=== PATIENT | female | born 1940 | race Caucasian/White ===

== ENCOUNTER 2019-05-24 15:26 | Emergency (ER) | payer OTHER ==
[2019-05-24] MEDS ORDERED: ENOXAPARIN 80 MG/0.8 ML SQ ONE (16:06)
[2019-05-24 16:33] LABS: Protime INR 1.09
[2019-05-24 16:41] LABS: Albumin 3.1 g/dL (3.4-5.0); Bilirubin Direct 0.2 mg/dL (0-0.2); Bilirubin Total 0.7 mg/dL (0.2-1.0); Protein, Total 6.8 g/dL (6.4-8.2); Troponin (Emerg Dept Use Only) 0.04 ng/mL (0.0-0.045)
[2019-05-24 16:53] LABS: Absolute Lymphocytes (CBC) 1.2 K/uL (0.7-4.9); Basophils % 0.7 % (0-1.3); Hematocrit 35.6 % (36.0-45.0); Lymphocytes % 13.7 % (15.3-44.8); MPV 9.6 fL (7.6-11.3)
--- NOTE | 2019-05-24 17:28 | RAD REPORT ---
EXAM DESCRIPTION: [place] Single View05/24/2019 4:16 pm CLINICAL HISTORY: sob COMPARISON: none FINDINGS: The lungs appear clear of acute infiltrate. The heart is normal size
--- NOTE | 2019-05-24 17:28 | RAD REPORT ---
EXAM DESCRIPTION: CT - Chest For Pe Angio - 05/24/2019 5:08 pm CLINICAL HISTORY: Shortness breath/syncope COMPARISON: None. TECHNIQUE: Dynamically enhanced axial 3 mm thick images of the chest were obtained during administra tion of <100> mL Isovue 370 IV contrast. Coronal and oblique reconstruction images were generated and reviewed. Exam utilizes a protocol for optimal evaluation of pulmonary arterial tree. Maximum intensity projections 3D imaging was utilized All CT scans are performed using dose optimization technique as appropriate and may include automated exposure control or mA/KV adjustment according to patient size. FINDINGS: Large amount of thrombus is present within the main, left main, distal right main, right u pper, right middle, right lower, left upper and left lower lobe pulmonary arteries. Azygous and debra azygous veins are enlarged A thoracic aortic aneurysm is not noted. Small bilateral pleural effusions. A pericardial effusion is not seen. A lung consolidation is not present. IMPRESSION: Extensive bilateral pulmonary emboli. Naveed from Emergency Room was notified 5:17 p.m. May 24, 2019
--- NOTE | 2019-05-24 17:35 | EKG ---
Test Date: 2019-05-24 Test Time: 15:48:05 Registered Nurse Float Pool: JO-ANN MEASUREMENT RESULTS: Intervals: Rate: 84 NE: 158 QRSD: 104 QT: 370 QTc: 437 [place]: P: 78 NE: 158 QRS: -64 T: 75 INTERPRETIVE STATEMENTS: Normal sinus rhythm Left anterior fascicular block Intraventricular conduction delay Possible Anterior infarct Abnormal ECG No previous ECG available for comparison Electronically Signed On 05-24-19 17:34:56 GRADES 1 THRU 5 TEACHER by Alberto Tipton
--- NOTE | 2019-05-24 17:40 | EDPHYS ---
Physician Documentation [facility] Name: Melba Terry Age: 79 yrs Sex: Female : 1940 Arrival Date: 05/24/2019 Time: 15:28 Bed 6 Private MD: ED Physician Prince Carbajal HPI: 05/24 16:22 This 79 yrs old Female presents to ER via Ambulatory with complaints of jr8 Breathing Difficulty. 16:22 The patient has shortness of breath at rest. Onset: The symptoms/episode began/occurred jr8 gradually, 4 day(s) ago. Duration: The symptoms are continuous. The patient's shortness of breath is aggravated by exertion. Associated signs and symptoms: Pertinent positives: chest pain, diaphoresis, syncope. Severity of symptoms: At their worst the symptoms were moderate in the emergency department the symptoms are unchanged. It is unknown whether or not the patient has had similar symptoms in the past. The patient has not recently seen a physician. Patient stated that she has had shortness of breath for the past 4 days. Syncopal episode yesterday. Has noticed increased in leg circumference on left side when compared to right. Had recent travel over seas. Patient with RA saturation at 90% upon arrival with tachypnea . Historical: - Allergies: 15:40 Levaquin; ch 15:40 Augmentin; ch 15:40 Fortaz; ch 15:40 Sulfamethazine; ch 15:40 others unknown; ch 15:40 Adhesives; ch - Home Meds: 18:44 prednisone oral [Active]; Allopurinol Oral [Active]; pravastatin oral oral [Active]; jl7 Singulair oral [Active]; Glipizide Oral [Active]; - PMHx: 15:46 Hypertension; sg 15:58 Asthma; pulmonary embolism; DVT; Diabetes - NIDDM; shingles; chronic back pain; ch 18:44 Gout; jl7 - PSHx: 15:58 knees balwinder; Appendectomy; Cholecystectomy; R finger, thumb; back; neck; ch - Immunization history:: Adult Immunizations not up to date. - Social history:: Smoking status: Patient/guardian denies using tobacco. - Ebola Screening: : Patient negative for fever greater than or equal to 101.5 degrees Fahrenheit, and additional compatible Ebola Virus Disease symptoms Patient denies exposure to infectious person Patient denies travel to an Ebola-affected area in the 21 days before illness onset No symptoms or risks identified at this time. ROS: 16:22 Eyes: Negative for injury, pain, redness, and discharge, ENT: Negative for injury, jr8 pain, and discharge, Neck: Negative for injury, pain, and swelling, Abdomen/GI: Negative for abdominal pain, nausea, vomiting, diarrhea, and constipation, Back: Negative for injury and pain, MS/Extremity: Negative for injury and deformity, Skin: Negative for injury, rash, and discoloration. 16:22 Cardiovascular: Positive for chest pain, Negative for edema, orthopnea, palpitations, paroxysmal nocturnal dyspnea. 16:22 Respiratory: Positive for dyspnea on exertion, shortness of breath. 16:22 Neuro: Positive for syncope. Exam: 16:22 Eyes: Pupils equal round and reactive to light, extra-ocular motions intact. Lids and jr8 lashes normal. Conjunctiva and sclera are non-icteric and not injected. Cornea within normal limits. Periorbital areas with no swelling, redness, or edema. ENT: Nares patent. No nasal discharge, no septal abnormalities noted. Tympanic membranes are normal and external auditory canals are clear. Oropharynx with no redness, swelling, or masses, exudates, or evidence of obstruction, uvula midline. Mucous membranes moist. Neck: Trachea midline, no thyromegaly or masses palpated, and no cervical lymphadenopathy. Supple, full range of motion without nuchal rigidity, or vertebral point tenderness. No Meningismus. Cardiovascular: Regular rate and rhythm with a normal S1 and S2. No gallops, murmurs, or rubs. Normal PMI, no JVD. No pulse deficits. Respiratory: Lungs have equal breath sounds bilaterally, clear to auscultation and percussion. No rales, rhonchi or wheezes noted. Tachypneic Abdomen/GI: Soft, non-tender, with normal bowel sounds. No distension or tympany. No guarding or rebound. No evidence of tenderness throughout. Back: No spinal tenderness. No costovertebral tenderness. Full range of motion. Skin: Warm, dry with normal turgor. Normal color with no rashes, no lesions, and no evidence of cellulitis. MS/ Extremity: Pulses equal, no cyanosis. Neurovascular intact. Full, normal range of motion. Neuro: Awake and alert, GCS 15, oriented to person, place, time, and situation. Cranial nerves II-XII grossly intact. Motor strength 5/5 in all extremities. Sensory grossly intact. Cerebellar exam normal. Normal gait. Vital Signs: 15:51 BP 146 / 89; Pulse 82; Resp 27 S; Pulse Ox 90% on R/A; Weight 78.02 kg (R); Height 5 jl7 ft. 2 in. (157.48 cm) (R); 15:53 Temp 97.7(O); jl7 16:00 BP 133 / 82; Pulse 78; Resp 23 S; Pulse Ox 100% on 2 lpm NC; jl7 16:15 BP 136 / 63; Pulse 79; Resp 19; Pulse Ox 100% on 2 lpm NC; jl7 16:45 BP 124 / 60; Pulse 72; Resp 15 S; Pulse Ox 100% on 2 lpm NC; jl7 17:15 BP 136 / 79; Pulse 68; Resp 19 S; Pulse Ox 100% on 2 lpm NC; jl7 17:45 BP 137 / 67; Pulse 68; Resp 18 S; Pulse Ox 100% on 2 lpm NC; jl7 18:24 BP 134 / 68; Pulse 66; Resp 18; Pulse Ox 100% 2 lpm ; jl7 19:20 BP 159 / 76; Pulse 68; Resp 18; Pulse Ox 100% 2 lpm ; ea 19:27 Temp 97.7; ea 15:51 Body Mass Index 31.46 (78.02 kg, 157.48 cm) jl7 MDM: 15:58 Patient medically screened. [facility] 17:03 Data reviewed: vital signs, nurses notes, lab test result(s), EKG, radiologic studies, [facility] CT scan, plain films. Data interpreted: Pulse oximetry: on room air is 90 %. Interpretation: hypoxia. Counseling: I had a detailed discussion with the patient and/or guardian regarding: the historical points, exam findings, and any diagnostic results supporting the discharge/admit diagnosis, lab results, radiology results, the need for further work-up and treatment in the hospital. ED course: Lactate is elevated secondary to hypoxemia from a large pulmonary embolus. No sepsis identified . 17:38 ED course: Dr. Gao is out of town. [facility] contacted and Dr. Jade accepted jr8 patient . 05/24 15:59 Order name: Basic Metabolic Panel; Complete Time: 17:03 05/24 15:59 Order name: CBC with Diff; Complete Time: 17:03 05/24 15:59 Order name: LFT's; Complete Time: 17:03 05/24 15:59 Order name: Magnesium; Complete Time: 17:03 05/24 15:59 Order name: NT PRO-BNP; Complete Time: 17:03 05/24 15:59 Order name: PT-INR; Complete Time: 17:03 05/24 15:59 Order name: Troponin (emerg Dept Use Only); Complete Time: 17:03 05/24 15:59 Order name: XRAY Chest (1 view); Complete Time: 17:39 05/24 15:59 Order name: Blood Culture Adult (2) 05/24 15:59 Order name: Procalcitonin; Complete Time: 17:21 05/24 15:59 Order name: Lactate; Complete Time: 17:03 05/24 15:59 Order name: CT Chest For PE Angio; Complete Time: 17:39 05/24 17:21 Order name: US Extremity Venous Unilateral Ltd; Complete Time: 06:55 05/24 15:59 Order name: EKG; Complete Time: 16:00 05/24 15:59 Order name: Cardiac monitoring; Complete Time: 16:01 05/24 15:59 Order name: EKG - Nurse/Tech; Complete Time: 16:01 05/24 15:59 Order name: IV Saline Lock; Complete Time: 16:01 05/24 15:59 Order name: Labs collected and sent; Complete Time: 16:01 05/24 15:59 Order name: O2 Per Protocol; Complete Time: 16:01 05/24 15:59 Order name: O2 Sat Monitoring; Complete Time: 16:01 Administered Medications: 16:29 Drug: Lovenox 1 mg/kg Route: Sub-Q; Site: abdomen; jl7 16:51 Follow up: Response: No adverse reaction jl7 Disposition: 05/24/19 17:39 Transfer ordered to [facility]. Diagnosis is Saddle embolus of pulmonary artery with acute cor pulmonale. - Reason for transfer: Higher level of care. - Accepting physician is Dr. Jade. - Condition is Fair. - Problem is new. - Symptoms have improved. Addendum: 05/31/2019 07:23 Co-signature as Attending Physician, Prince Carbajal MD I agree with the assessment and c garcia plan of care. Signatures: Dispatcher [employer] EDMaddi Winters, RN Sundar Rush ch RN Prince Downs MD MD cha Roszak, Josh, PA PA jr8 Lucy Ramos RN RN jl7 Alee Hassan RN RN ea Corrections: (The following items were deleted from the chart) 05/24 15:59 15:46 PMHx: COPD; [facility] 19:29 17:39 05/24/2019 17:39 Transfer ordered to [facility]. Diagnosis is ea Saddle embolus of pulmonary artery with acute cor pulmonale. Reason for transfer: Higher level of care. Accepting physician is Dr. Jade. Condition is Fair. Problem is new. Symptoms have improved. jr8
--- NOTE | 2019-05-24 17:41 | ER ---
Nurse's Notes [facility] Name: Melba Terry Age: 79 yrs Sex: Female : 1940 Arrival Date: 05/24/2019 Time: 15:28 Bed 6 Private MD: Diagnosis: Saddle embolus of pulmonary artery with acute cor pulmonale Presentation: 05/24 15:37 Presenting complaint: Patient states: pt reports cant breathe for 4 days and getting ch worse. having syncopal episoded. 15:37 Acuity: JACK 2 sg 15:37 Transition of care: patient was not received from another setting of care. Onset of sg symptoms was May 20, 2019. Risk Assessment: Do you want to hurt yourself or someone else? Patient reports no desire to harm self or others. Initial Sepsis Screen: Does the patient meet any 2 criteria? RR > 20 per min. No. Patient's initial sepsis screen is negative. Does the patient have a suspected source of infection? No. Patient's initial sepsis screen is negative. Care prior to arrival: None. 15:37 Method Of Arrival: Ambulatory sg Triage Assessment: 15:37 General: Appears ill, well groomed, well developed, well nourished, Behavior is sg cooperative, appropriate for age, agitated. Pain: Denies pain. Neuro: Level of Consciousness is awake, alert, obeys commands, Oriented to person, place, time. Cardiovascular: Patient's skin is warm and dry. Chest pain is denied. Respiratory: Reports shortness of breath at rest on exertion Airway is patent Respiratory effort is even, labored, shallow, Respiratory pattern is symmetrical, tachypnea Breath sounds are diminished in right posterior lower lobe the patient has moderate shortness of breath. : No signs and/or symptoms were reported regarding the genitourinary system. Derm: Skin is pale. 18:44 Respiratory: Onset: The symptoms/episode began/occurred x 4 daYS. Historical: - Allergies: 15:40 Levaquin; ch 15:40 Augmentin; ch 15:40 Fortaz; ch 15:40 Sulfamethazine; ch 15:40 others unknown; ch 15:40 Adhesives; ch - Home Meds: 18:44 prednisone oral [Active]; Allopurinol Oral [Active]; pravastatin oral oral [Active]; jl7 Singulair oral [Active]; Glipizide Oral [Active]; - PMHx: 15:46 Hypertension; sg 15:58 Asthma; pulmonary embolism; DVT; Diabetes - NIDDM; shingles; chronic back pain; ch 18:44 Gout; jl7 - PSHx: 15:58 knees balwinder; Appendectomy; Cholecystectomy; R finger, thumb; back; neck; ch - Immunization history:: Adult Immunizations not up to date. - Social history:: Smoking status: Patient/guardian denies using tobacco. - Ebola Screening: : Patient negative for fever greater than or equal to 101.5 degrees Fahrenheit, and additional compatible Ebola Virus Disease symptoms Patient denies exposure to infectious person Patient denies travel to an Ebola-affected area in the 21 days before illness onset No symptoms or risks identified at this time. Screenin:53 Abuse screen: Denies threats or abuse. Denies injuries from another. Nutritional jl7 screening: No deficits noted. Tuberculosis screening: No symptoms or risk factors identified. Fall Risk IV access (20 points). Total Mohan Fall Scale indicates No Risk (0-24 pts). Assessment: 15:33 General: Appears in no apparent distress. uncomfortable, Behavior is cooperative, jl7 anxious. Pain: Denies pain. Neuro: Level of Consciousness is awake, alert, obeys commands, Oriented to person, place, time, situation. Cardiovascular: Heart tones present Patient's skin is warm and dry. Rhythm is regular. Respiratory: Airway is patent Respiratory effort is even, labored, shallow, Respiratory pattern is symmetrical, tachypnea Breath sounds are clear bilaterally. Derm: Skin is pink, warm \T\ dry. 16:30 Reassessment: Patient appears in no apparent distress at this time. No changes from jl7 previously documented assessment. Patient and/or family updated on plan of care and expected duration. Pain level reassessed. Patient is alert, oriented x 3, equal unlabored respirations, skin warm/dry/pink. 17:30 Reassessment: Patient appears in no apparent distress at this time. No changes from jl7 previously documented assessment. Patient and/or family updated on plan of care and expected duration. Pain level reassessed. Patient is alert, oriented x 3, equal unlabored respirations, skin warm/dry/pink. 18:03 Reassessment: attempted to call report, nurse unavailable. jl7 18:24 Reassessment: Patient appears in no apparent distress at this time. Patient and/or jl7 family updated on plan of care and expected duration. Pain level reassessed. Patient is alert, oriented x 3, equal unlabored respirations, skin warm/dry/pink. 19:19 Reassessment: EMS at facility for transfer. Report given to [facility]. ea 19:24 Reassessment: Patient is alert, oriented x 3, equal unlabored respirations, skin bb warm/dry/pink. IV sites intact, no apparent distress noted, pts belongings placed in bag and sent with her. Vital Signs: 15:51 BP 146 / 89; Pulse 82; Resp 27 S; Pulse Ox 90% on R/A; Weight 78.02 kg (R); Height [address] [facility] ft. 2 in. (157.48 cm) (R); 15:53 Temp 97.7(O); jl7 16:00 BP 133 / 82; Pulse 78; Resp 23 S; Pulse Ox 100% on 2 lpm NC; jl7 16:15 BP 136 / 63; Pulse 79; Resp 19; Pulse Ox 100% on 2 lpm NC; jl7 16:45 BP 124 / 60; Pulse 72; Resp 15 S; Pulse Ox 100% on 2 lpm NC; jl7 17:15 BP 136 / 79; Pulse 68; Resp 19 S; Pulse Ox 100% on 2 lpm NC; jl7 17:45 BP 137 / 67; Pulse 68; Resp 18 S; Pulse Ox 100% on 2 lpm NC; jl7 18:24 BP 134 / 68; Pulse 66; Resp 18; Pulse Ox 100% 2 lpm ; jl7 19:20 BP 159 / 76; Pulse 68; Resp 18; Pulse Ox 100% 2 lpm ; ea 19:27 Temp 97.7; ea 15:51 Body Mass Index 31.46 (78.02 kg, 157.48 cm) 7 ED Course: 15:28 Patient arrived in ED. rg4 15:34 Lucy Ramos, RN is Primary Nurse. jl7 15:45 Arm band placed on. sg 15:49 Triage completed. sg 15:52 Initial lab(s) drawn, by me, sent to lab. Inserted saline lock: 20 gauge in right jl7 forearm, using aseptic technique. Blood collected. 15:53 Patient has correct armband on for positive identification. Placed in gown. Bed in low jl7 position. Call light in reach. Side rails up X 1. victims advocate clerk/specialist on. Pulse ox on. NIBP on. Warm blanket given. 15:54 EKG done, by small engine technician. reviewed by Raffaele Good MD. at1 15:55 First set of blood cultures drawn left FA. jl7 15:58 Naveed Rao PA is PHCP. jr8 15:58 Prince Carbajal MD is Attending Physician. jr8 16:05 Radiology exam delayed due to lab results not completed at this time. (BUN/Creatinine). vm2 16:13 XRAY Chest (1 view) In Process Unspecified. EDMS 16:17 Second set of blood cultures drawn right FA. jl7 17:10 CT Chest For PE Angio In Process Unspecified. EDMS 18:24 US Extremity Venous Unilateral Ltd In Process Unspecified. EDMS 19:06 Primary Nurse role handed off by Lucy Ramos RN jl7 19:20 No provider procedures requiring assistance completed. Patient transferred, IV remains ea in place. Administered Medications: 16:29 Drug: Lovenox 1 mg/kg Route: Sub-Q; Site: abdomen; jl7 16:51 Follow up: Response: No adverse reaction jl7 Outcome: 17:39 ER care complete, transfer ordered by . jr8 19:27 Condition: stable ea 19:27 Instructed on the need for transfer. 19:28 Transferred by ground EMS to [facility], Transfer form completed. ea 19:29 Patient left the ED. ea Signatures: Dispatcher [employer] EDMS Maddi Yates, RN RN Sundar Orr RN RN Nan Miranda RN Naveed Dalal PA PA jrBrisa Pires, triage rn EKG Tat1 Gracia Coello rg4 Lucy Ramos RN RN jl7 McGuire, Victoria 2 Alee Hassan RN RN ea Corrections: (The following items were deleted from the chart) 15:59 15:46 PMHx: COPD; [facility]
--- NOTE | 2019-05-24 18:33 | RAD REPORT ---
EXAM DESCRIPTION: USExtremity Venous Uni Ltd05/24/2019 6:22 pm CLINICAL HISTORY: left leg pain and swelling. COMPARISON: None. FINDINGS: Left common femoral, posterior tibial veins are compressible and demonstrate augmentation. Doppler demonstrates good flow. Acute thrombus is present throughout the left common femoral vein and proximal left popliteal vein. T he veins are not compressible. There is little flow within the vein. IMPRESSION: Acute thrombus left superficial femoral and left popliteal veins.
[2019-05-24 19:37] VITALS: TEMP 97.7
[2019-05-24 19:39] VITALS: O2SAT 100
[2019-05-24 19:47] VITALS: BP 159/76
== END 2019-05-24 19:29 | disposition short-term general hospital (02) ==
LOC: ER 15:26
DX: I26.02 Saddle embolus of pulmonary artery with acute cor pulmonale (principal); I10 Essential (primary) hypertension; E11.9 Type 2 diabetes mellitus without complications; Z88.1 Allergy status to other antibiotic agents; Z88.2 Allergy status to sulfonamides; Z88.8 Allergy status to other drugs, medicaments and biological substances; Z86.718 Personal history of other venous thrombosis and embolism; Z91.048 Other nonmedicinal substance allergy status
CPT/HCPCS: 93005; 87040 ×2; 85025; 80048; 36415; 83735; 85610; 80076; 83605 ×2; 84484; 84145; 83880; 71275; 71045; 93971; 96372; 99285; Q9967; J1650